=== PATIENT | female | born 1990 | race Caucasian/White ===

== ENCOUNTER 2017-12-29 05:58 | Emergency (ER) | payer OTHER ==
[~2017-12-29] VITALS: Ht 172.7 cm; Wt 104.3 kg
[~2017-12-29 05:58] MED LIST: Bactrim Ds Tab1 EACH PO; Esgic Tablet1 EACH PO; Xanax0.5 MG PO
[2017-12-29] MEDS ORDERED: Veetids 500500 MG PO (06:43)
== END 2017-12-29 06:48 | disposition home or self-care (01) ==
LOC: ER 05:58
DX: K08.89 Other specified disorders of teeth and supporting structures (principal); F17.210 Nicotine dependence, cigarettes, uncomplicated; Z88.1 Allergy status to other antibiotic agents
CPT/HCPCS: 96372; 99282; J1885

== ENCOUNTER 2018-02-25 19:28 | Emergency (ER) | payer OTHER ==
[~2018-02-25] VITALS: Ht 160 cm; Wt 79.4 kg
[~2018-02-25 19:28] MED LIST changes: +Veetids 500500 MG PO
[2018-02-25] MEDS ORDERED: Bactrim Ds Tab1 EACH PO (19:44)
== END 2018-02-25 19:50 | disposition home or self-care (01) ==
LOC: ER 19:28
DX: L02.415 Cutaneous abscess of right lower limb (principal); F17.210 Nicotine dependence, cigarettes, uncomplicated; Z88.1 Allergy status to other antibiotic agents
CPT/HCPCS: 99282

== ENCOUNTER → 2018-06-01 | Outpatient (CLI) | payer OTHER | END | disposition home or self-care (01) | LOC: LAB 17:08 → LAB SHORT 17:08 | PROVIDERS: Advanced Practice Midwife | DX: Z01.419 Encounter for gynecological examination (general) (routine) without abnormal findings (principal); Z11.3 Encounter for screening for infections with a predominantly sexual mode of transmission | CPT/HCPCS: G0123 ==